=== PATIENT | male | born 1980 ===

== ENCOUNTER 2016-07-30 15:58 | Emergency (ER) | payer SELFPAY ==
[2016-07-30 15:58] VITALS: BMI 29.9
[2016-07-30 16:25] VITALS: BP 125/82; PULSE 77; RESP 18; TEMP 98.1; O2SAT 98
--- NOTE | 2016-07-30 16:46 | C.PDOC ---
History Of Present Illness 36 y/o male presents to ED with complains of persistent foreign body sensation to left eye x2 weeks. Pt states he felt "something fly into his eye" but doesn' t know what it was. Pt still has foreign body sensation and light sensitivity. Has been using OTC eyewash without improvement. Denies vision changes. Time Seen by Provider: 07/30/16 16:41 Chief Complaint (Nursing): Eye Problem History Per: Patient History/Exam Limitations: no limitations Onset/Duration Of Symptoms: Days Current Symptoms Are (Timing): Still Present Injury To Eye?: No Severity: Mild Wears Contact Lens?: No Associated Symptoms: FB Sensation. denies: Decreased Vision Recent travel outside of the [place]: No Past Medical History Reviewed: Historical Data, Nursing Documentation, Vital Signs Vital Signs: Last Vital Signs Temp 98.1 F 07/30/16 16:23 Pulse 77 07/30/16 16:23 Resp 18 07/30/16 16:23 BP 125/82 07/30/16 16:23 Pulse Ox 98 07/30/16 17:20 - [facility] Procedures OTHER SKIN & SUBQ I D (09/01/13) Family History: States: Unknown Family Hx - Social History Hx Tobacco Use: Yes Hx Alcohol Use: No Hx Substance Use: No - Immunization History Hx Tetanus Toxoid Vaccination: No Hx Influenza Vaccination: No Hx Pneumococcal Vaccination: No Review Of Systems Except As Marked, All Systems Reviewed And Found Negative. Eyes: Positive for: Other (foreign body sensation to left eye, light sensitivity ). Negative for: Vision Change Physical Exam - Physical Exam Appears: Non-toxic, No Acute Distress Skin: Warm, Dry, No Rash Head: Atraumatic, Normacephalic Eye(s): bilateral: PERRL, EOMI Extremity: Bilateral: Atraumatic Neurological/Psych: Oriented x3, Normal Speech ED Course And Treatment O2 Sat by Pulse Oximetry: 98 Disposition Counseled Patient/Family Regarding: Diagnosis, Need For Followup, Rx Given - Disposition Referrals: Johnathan Crump MD [Staff Provider] - Disposition: HOME/ ROUTINE Disposition Time: 17:17 Condition: IMPROVED Additional Instructions: FOLLOW UP WITH EYE DOCTOR (OPTHOMOLOGIST) SOON POSSIBLE THIS WEEK. WEAR EYE PATCH NEEDED. USE ANTIBIOTIC DROPS DIRECTED. Prescriptions: Acetaminophen/Codeine [Tylenol/Codeine 300 MG/30 MG] 2 tab PO Q6H #20 tab Ciprofloxacin 0.3% [Ciloxan 0.3% Ophth SOLN] 2 drop OD Q2 #1 bottle Ibuprofen [Motrin] 600 mg PO Q6 #30 tab Instructions: Corneal Abrasion (ED) Forms: Work Excuse - Clinical Impression Clinical Impression: Corneal abrasion, Sensation of foreign body in eye - Scribe Statement The provider has reviewed the documentation as recorded by the Fredis Vaughn Provider Attestation: All medical record entries made by the Fredis were at my direction and personally dictated by me. I have reviewed the chart and agree that the record accurately reflects my personal performance of the history, physical exam, medical decision making, and the department course for this patient. I have also personally directed, reviewed, and agree with the discharge instructions and disposition. PROCEDURES - FB Removal Eye Left Consent Obtained: Verbal Consent Time Out Performed: Yes Location: Left Eye Topical Anesthetic Used: Tetracaine Foreign Body Material: Other (?FB) Evidence of Corneal Penetration: No Technique: Irrigation, Cotton Tip Swab Procedure Performed Under: Direct Visualization w/Magnification Post-Procedure Medication: Topical Anesthetic Patient tolerated procedure: Well Additional comments: +CORNEAL ABRASION 5 OCLOCK. NO GROSS VISUALIZED FB. NO APPRECIABLE FB FELT W STERILE QTIP SWEEP.
[2016-07-30] MEDS ORDERED: Fluorescein 1 mg Ophthalmic Strip OU STA (16:54)
[2016-07-30] MEDS ORDERED: Tetracaine 0.5% Ophth (OR ONLY) OU STA (16:54)
[2016-07-30] MEDS ORDERED: Tetracaine 0.5% Ophth (OR ONLY) ONE (17:00)
[2016-07-30] MEDS ORDERED: Fluorescein 1 mg Ophthalmic Strip ONE (17:01)
== END 2016-07-30 17:38 | disposition home or self-care (01) ==
LOC: C.ER 15:58
DX: S05.02XA Injury of conjunctiva and corneal abrasion without foreign body, left eye, initial encounter (principal); X58.XXXA Exposure to other specified factors, initial encounter